=== PATIENT | male | born 1935 | race Caucasian/White ===

== ENCOUNTER 2016-09-11 04:55 | Emergency (ER) | payer MEDICARE, BC ==
[2016-09-11] MEDS ORDERED: Ketorolac 60 MG/2 ML SDV IM ONE (05:10)
[2016-09-11 05:33] VITALS: BP 139/101
--- NOTE | 2016-09-11 06:00 | EDM.PDOC ---
ED HPI GENERAL MEDICAL PROBLEM - General Chief Complaint: General Stated Complaint: RIGHT FLANK PAIN Time Seen by Provider: 09/11/16 05:25 Source of Information: Reports: Patient History Limitations: Reports: No Limitations - History of Present Illness INITIAL COMMENTS - FREE TEXT/NARRATIVE: This is an 81yo M here for abdominal pain that radiates to the flank and then to the front abdomen on the right side. He states it started about 4 weeks ago and the past 3-4 days has gotten severe where the pain is 10/10 and he is unable to get up and move around with ease. He denies any recent injuries. No fever or chills. No dysuria. Does have constipation but it comes and goes after a day. He states he has been taking motrin and tylenol which have been helping. Denies prior issues with this area or pain. He cannot recall his medications but is on a lot. He does not have a list of medications. He lives in [place] and [facility]. He has been discussing his symptoms with his friend Beni who is a practicing [employer]/Front Office Clerk in [place] at 89yrs of age and had him speak to me. 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 Neurological History: Reports: CVA Psychiatric History: Reports: Depression Endocrine/Metabolic History: Reports: Hypoparathyroidism Hematologic History: Reports: Anticoagulation Therapy, Blood Transfusion(s) Oncologic (Cancer) History: Reports: Basal Cell Carcinoma, Prostate Dermatologic History: Reports: Benign Melanoma, Melanoma - Infectious Disease History Infectious Disease History: Reports: Chicken Pox, Measles, Mumps, Shingles - Past Surgical History HEENT Surgical History: Reports: Adenoidectomy, Cataract Surgery, Tonsillectomy Cardiovascular Surgical History: Reports: Coronary Artery Stent GI Surgical History: Reports: Hernia, Abdominal Male Surgical History: Reports: Prostatectomy Musculoskeletal Surgical History: Reports: Hip Replacement, Shoulder Surgery Social & Family History - Family History Family Medical History: Noncontributory - Tobacco Use Smoking Status *Q: Never Smoker Second Hand Smoke Exposure: No - Caffeine Use Caffeine Use: Reports: Coffee - Recreational Drug Use Recreational Drug Use: No ED ROS GENERAL - Review of Systems Review Of Systems: ROS reveals no pertinent complaints other than HPI. GI/Abdominal: Reports: Abdominal Pain : Reports: Incontinence (post prostate surgery) Musculoskeletal: Reports: Back Pain Neurological: Reports: No Symptoms ED EXAM, GENERAL - Physical Exam Exam: See Below Exam Limited By: No Limitations General Appearance: Alert, WD/WN, Moderate Distress Eye Exam: Bilateral Eye: EOMI, PERRL Ears: Normal External Exam Nose: Normal Inspection Throat/Mouth: Normal Inspection Head: Atraumatic, Normocephalic Neck: Normal Inspection Respiratory/Chest: No Respiratory Distress, Lungs Clear, Normal Breath Sounds Cardiovascular: Normal Peripheral Pulses, Regular Rate, Rhythm, Systolic Murmur GI/Abdominal: Normal Bowel Sounds, Soft, Non-Tender, Distended, Other ( difficult to reproduce pain even on deep palpation where patient localizes). No : Guarding, Rigid, Rebound, Tender, Abnormal Bowel Sounds, Mass, Hepatomegaly, Splenomegaly Back Exam: Normal Inspection, Full Range of Motion Extremities: Normal Inspection Neurological: Alert, Oriented, CN II-XII Intact Psychiatric: Normal Affect, Normal Mood Course - Vital Signs Last Recorded V/S: Last Vital Signs Temp 36.6 C 09/11/16 05:34 Pulse 56 L 09/11/16 05:34 Resp 20 09/11/16 05:34 BP 139/101 H 09/11/16 05:34 Pulse Ox 93 L 09/11/16 05:34 - Orders/Labs/Meds Orders: Active Orders 24 hr Category Date Time Status Abdomen Pelvis wo Cont [CT] Stat Exams 09/11/16 05:53 Ordered Labs: Laboratory Tests 09/11/16 09/11/16 09/11/16 Range/Units 06:00 06:00 06:00 WBC 9.5 (4.0-11.0) K/uL RBC 4.94 (4.50-6.50) M/uL Hgb 14.3 (13.0-18.0) g/dL Hct 41.9 (40.0-54.0) % MCV 85 (76-96) fL MCH 28.9 (27.0-32.0) pg MCHC 34.1 (31.0-35.0) g/dL RDW 13.4 (11.0-16.0) % Plt Count 204 (150-400) K/uL MPV 10.8 H (6.0-10.0) fL Neut % (Auto) 53.2 (45.0-70.0) % Lymph % (Auto) 35.5 (20.0-40.0) % Bay % (Auto) 7.8 (3.0-10.0) % Eos % (Auto) 3.2 (1.0-5.0) % Baso % (Auto) 0.3 (0.0-0.5) % Neut # (Auto) 5.06 (2.00-7.50) K/uL Lymph # (Auto) 3.38 (1.50-4.00) K/uL [place] # (Auto) 0.74 (0.20-0.80) K/uL Eos # (Auto) 0.30 (0.04-0.40) K/uL Baso # (Auto) 0.03 (0.02-0.10) K/uL Sodium 139 (136-145) mmol/L Potassium 4.4 (3.5-5.1) mmol/L Chloride 105 (98-107) mmol/L Carbon Dioxide 23.2 (21.0-32.0) mmol/L Anion Gap 15.2 H (5.0-15.0) mmol/L BUN 22 (8-26) mg/dL Creatinine 1.08 (0.70-1.30) mg/dL Est Cr Clr Drug Dosing 49.90 mL/min Estimated GFR (MDRD) > 60 (>60) MLS/MIN BUN/Creatinine Ratio 20.4 (6-25) Glucose 119 H (74-100) mg/dL Lactic Acid 1.13 (0.90-1.70) mmol/L Calcium 8.7 (8.5-10.1) mg/dL Total Bilirubin 0.2 (0.0-1.0) mg/dL AST 14 L (15-37) U/L ALT 18 (12-78) U/L Alkaline Phosphatase 58 (46-116) U/L Total Protein 7.0 (6.4-8.2) g/dL Albumin 3.6 (3.4-5.0) g/dL Globulin 3.4 (2.2-4.2) g/dL Albumin/Globulin Ratio 1.1 (0.8-2.0) Urine Color Urine Appearance (CLEAR) Urine pH (5.0-8.0) Ur Specific [place] (1.003-1.030) Urine Protein (NEGATIVE) mg/dL Urine Glucose (UA) (NEGATIVE) mg/dL Urine Ketones (NEGATIVE) mg/dL Urine Occult Blood (NEGATIVE) Urine Nitrite (NEGATIVE) Urine Bilirubin (NEGATIVE) Urine Urobilinogen (0.2-1.0) E.U./dL Ur Leukocyte Esterase (NEGATIVE) 09/11/16 Range/Units 06:28 WBC (4.0-11.0) K/uL RBC (4.50-6.50) M/uL Hgb (13.0-18.0) g/dL Hct (40.0-54.0) % MCV (76-96) fL MCH (27.0-32.0) pg MCHC (31.0-35.0) g/dL RDW (11.0-16.0) % Plt Count (150-400) K/uL MPV (6.0-10.0) fL Neut % (Auto) (45.0-70.0) % Lymph % (Auto) (20.0-40.0) % [place] % (Auto) (3.0-10.0) % Eos % (Auto) (1.0-5.0) % Baso % (Auto) (0.0-0.5) % Neut # (Auto) (2.00-7.50) K/uL Lymph # (Auto) (1.50-4.00) K/uL [place] # (Auto) (0.20-0.80) K/uL Eos # (Auto) (0.04-0.40) K/uL Baso # (Auto) (0.02-0.10) K/uL Sodium (136-145) mmol/L Potassium (3.5-5.1) mmol/L Chloride (98-107) mmol/L Carbon Dioxide (21.0-32.0) mmol/L Anion Gap (5.0-15.0) mmol/L BUN (8-26) mg/dL Creatinine (0.70-1.30) mg/dL Est Cr Clr Drug Dosing mL/min Estimated GFR (MDRD) (>60) MLS/MIN BUN/Creatinine Ratio (6-25) Glucose (74-100) mg/dL Lactic Acid (0.90-1.70) mmol/L Calcium (8.5-10.1) mg/dL Total Bilirubin (0.0-1.0) mg/dL AST (15-37) U/L ALT (12-78) U/L Alkaline Phosphatase (46-116) U/L Total Protein (6.4-8.2) g/dL Albumin (3.4-5.0) g/dL Globulin (2.2-4.2) g/dL Albumin/Globulin Ratio (0.8-2.0) Urine Color Yellow Urine Appearance Clear (CLEAR) Urine pH 5.5 (5.0-8.0) Ur Specific [place] 1.025 (1.003-1.030) Urine Protein Negative (NEGATIVE) mg/dL Urine Glucose (UA) Negative (NEGATIVE) mg/dL Urine Ketones Negative (NEGATIVE) mg/dL Urine Occult Blood Negative (NEGATIVE) Urine Nitrite Negative (NEGATIVE) Urine Bilirubin Negative (NEGATIVE) Urine Urobilinogen 0.2 (0.2-1.0) E.U./dL Ur Leukocyte Esterase Trace H (NEGATIVE) Meds: Medications Discontinued Medications Generic Name Dose Route Start Last Admin Trade Name Freq PRN Reason Stop Dose Admin Ketorolac Tromethamine 60 mg 09/11/16 05:10 09/11/16 05:13 Toradol IM 09/11/16 05:11 60 mg ONETIME ONE Administration Departure - Departure Time of Disposition: 07:04 Disposition: Home, Self-Care 01 Condition: Good Clinical Impression: Abdominal muscle pain - Discharge Information Forms: ED Department Discharge Additional Instructions: Take all previously prescribed medications as previously directed. Drink plenty of fluids and get plenty of rest. Activity as tolerated. Take Miralax daily for constipation. Follow up with regular provider as needed. Call with any questions. - Problem List Review Problem List Initiated/Reviewed/Updated: Yes - My Orders Last 24 Hours: My Active Orders 09/11/16 05:53 Abdomen Pelvis wo Cont [CT] Stat - Assessment/Plan Last 24 Hours: My Active Orders 09/11/16 05:53 Abdomen Pelvis wo Cont [CT] Stat Plan: Counseled on close monitoring and rest for likely pulled muscle. Discussed f/u as needed if symptoms return for recheck and exam.
--- NOTE | 2016-09-11 09:30 | CT ---
DATE OF SERVICE: 09/11/2016 CLINICAL DATA: Flank/back pain rad to abd. UNENHANCED ABDOMEN AND PELVIC CT Multislice acquisition through the abdomen and pelvis without IV or oral contrast was performed. No priors. Breathing motion artifact does degrade image quality. The heart size is within normal limits. There are coronary artery calcifications. There is a densely calcified nodule within the left lung base consistent with prior granulomatous disease. There is calcified pleural plaque in the left hemithorax posteriorly. The possibility of prior asbestos exposure should be considered. There are atelectatic changes in the right lower lobe, small area of consolidation. Pneumonia should be considered. The liver is normal size. There are innumerable small calcifications scattered throughout the liver consistent with prior granulomatous disease. No other focal hepatic lesions. The gallbladder appears normal. There are innumerable small calcifications scattered throughout the spleen consistent with prior granulomatous disease. The spleen otherwise appears normal. The pancreas appears normal. The right and left adrenals appear normal. There is a 3.8 cm sharply transcribed rounded fluid density lesion in the left renal cortex consistent in appearance with a benign renal cyst. The kidneys otherwise appear normal. No nephrocalcinosis or nephrolithiasis. No hydronephrosis or hydroureter. The patient is status post right total hip arthroplasty. This does produce significant beam hardening and streak artifact obscuring adjacent structures. The bladder is partially fluid filled and appears grossly normal. The appendix is not dilated. No evidence of appendicitis. There is diverticulosis of the descending and sigmoid colon. No evidence of diverticulitis. The patient is status post prostatectomy. No free air. No free fluid. No dilated loops of bowel. No adenopathy. No aortic aneurysm. IMPRESSION: No acute abnormalities. Other findings as discussed above. [id number] [facility]
== END 2016-09-11 07:01 | disposition home or self-care (01) ==
LOC: LB.ED 04:55
DX: M79.1 Myalgia (principal); H54.7 Unspecified visual loss; I25.10 Atherosclerotic heart disease of native coronary artery without angina pectoris; I25.2 Old myocardial infarction; E78.00 Pure hypercholesterolemia, unspecified; F32.9 Major depressive disorder, single episode, unspecified; E21.3 Hyperparathyroidism, unspecified; Z86.73 Personal history of transient ischemic attack (TIA), and cerebral infarction without residual deficits; Z98.890 Other specified postprocedural states
CPT/HCPCS: 36415; 74176; 80053; 81003; 83605; 85025; 96372; 99283; 99284; J1885

== ENCOUNTER 2016-12-30 16:10 | Emergency (ER) | payer MEDICARE, BC ==
--- NOTE | 2016-12-30 16:17 | EDM.PDOC ---
ED HPI GENERAL MEDICAL PROBLEM - General Chief Complaint: Syncope Stated Complaint: DIZZY - FELL @ [facility] Time Seen by Provider: 12/30/16 16:14 Source of Information: Reports: Patient, RN History Limitations: Reports: No Limitations - History of Present Illness INITIAL COMMENTS - FREE TEXT/NARRATIVE: 81 yr male presents with dizzy spell at home, hit head and was briefly unconscious. Friends took him inside to sit down. Pt is alert and talkative and Hard of hearing. 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 States no pain today. Thinks he may have doubled up his medication today. - Related Data Allergies Allergy/AdvReac Type Severity Reaction Status Date / Time No Known Allergies Allergy Verified 09/11/16 04:57 Home Meds: Home Meds Clopidogrel Bisulfate [Clopidogrel] 75 mg PO DAILY 12/30/16 [History] Docusate Sodium/Sennosides [Senna Plus] 1 tab PO DAILY PRN 12/30/16 [History] Escitalopram Oxalate [Escitalopram Oxalate] 20 mg PO DAILY 12/30/16 [History] Fish Oil/Borage/Flax/Om3,6,9#1 [[place] 3-6-9 1,200 mg Softgel] 2,000 mg PO BID [History] Levothyroxine Sodium [Synthroid] 100 mcg PO DAILY 12/30/16 [History] Promethazine/Phenyleph/Codeine [Promethazine VC-Codeine Syrup] 5 ml PO Q4H PRN 12/30/16 [History] RX: Gabapentin [Neurontin] 400 mg PO ASDIRECTED 12/30/16 [History] RX: Ibuprofen 200 mg PO Q4HR PRN 12/30/16 [History] RX: Metoprolol Tartrate 12.5 mg PO BID 12/30/16 [History] RX: Tolterodine Tartrate 1 mg PO BID 12/30/16 [History] RX: Valsartan 80 mg PO DAILY 12/30/16 [History] RX: amLODIPine [Norvasc] 5 mg PO DAILY 12/30/16 [History] Past Medical History HEENT History: Reports: Cataract, Hard of Hearing, Impaired Vision Cardiovascular History: Reports: CAD, High Cholesterol, Hypertension, [place], Prior Cardiac Arrest, Stents Genitourinary History: Reports: Other (See Below) Other Genitourinary History: 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 Neurological History: Reports: CVA Psychiatric History: Reports: Depression Endocrine/Metabolic History: Reports: Hypoparathyroidism Hematologic History: Reports: Anticoagulation Therapy, Blood Transfusion(s) Oncologic (Cancer) History: Reports: Basal Cell Carcinoma, Prostate Dermatologic History: Reports: Benign Melanoma, Melanoma - Infectious Disease History Infectious Disease History: Reports: Chicken Pox, Measles, Mumps, Shingles - Past Surgical History HEENT Surgical History: Reports: Adenoidectomy, Cataract Surgery, Tonsillectomy Cardiovascular Surgical History: Reports: Coronary Artery Stent GI Surgical History: Reports: Hernia, Abdominal Male Surgical History: Reports: Prostatectomy Musculoskeletal Surgical History: Reports: Hip Replacement, Shoulder Surgery Social & Family History - Family History Family Medical History: Noncontributory - Tobacco Use Smoking Status *Q: Never Smoker Second Hand Smoke Exposure: No - Caffeine Use Caffeine Use: Reports: Coffee - Recreational Drug Use Recreational Drug Use: No ED ROS GENERAL - Review of Systems Review Of Systems: See Below Constitutional: Reports: No Symptoms HEENT: Reports: Glasses Respiratory: Reports: No Symptoms Cardiovascular: Reports: No Symptoms GI/Abdominal: Reports: No Symptoms : Reports: Incontinence Musculoskeletal: Reports: No Symptoms Skin: Reports: No Symptoms Neurological: Reports: Dizziness ED EXAM, GENERAL - Physical Exam Exam: See Below Exam Limited By: No Limitations General Appearance: Alert, No Apparent Distress Ears: Normal External Exam Nose: Normal Inspection Throat/Mouth: Normal Inspection Neck: Normal Inspection, Supple, Non-Tender Respiratory/Chest: Lungs Clear, Normal Breath Sounds Cardiovascular: Regular Rate, Rhythm, No Edema GI/Abdominal: Normal Bowel Sounds, Soft Back Exam: Normal Inspection, Other (bandaide to back. states biopsy done about 1 week ago.) Extremities: Normal Inspection, Normal Capillary Refill Neurological: Alert, Oriented, No Motor/Sensory Deficits Psychiatric: Normal Affect, Normal Mood Skin Exam: Warm, Dry, Normal Color, Other (uses walking stick) Lymphatic: No Adenopathy EKG INTERPRETATION EKG Date: 12/30/16 Rhythm: NSR QRS: RBBB KS/PQ Interval: 222 ms EKG Interpretation Comments: Sinus rhythm w 1st degree AV block and rt bundle branch block. Possible inferior infarct, age undetermined. Course - Vital Signs Last Recorded V/S: Last Vital Signs Temp 97 F 12/30/16 16:10 Pulse 70 12/30/16 16:10 Resp 16 12/30/16 16:10 BP 160/76 H 12/30/16 16:10 Pulse Ox 96 12/30/16 16:10 - Orders/Labs/Meds Labs: Laboratory Tests 12/30/16 12/30/16 12/30/16 Range/Units 16:14 16:15 16:15 WBC 10.4 (4.0-11.0) K/uL RBC 4.66 (4.50-6.50) M/uL Hgb 13.5 (13.0-18.0) g/dL Hct 39.6 L (40.0-54.0) % MCV 85 (76-96) fL MCH 29.0 (27.0-32.0) pg MCHC 34.1 (31.0-35.0) g/dL RDW 13.2 (11.0-16.0) % Plt Count 239 (150-400) K/uL MPV 9.9 (6.0-10.0) fL Neut % (Auto) 52.0 (45.0-70.0) % Lymph % (Auto) 37.2 (20.0-40.0) % [place] % (Auto) 8.2 (3.0-10.0) % Eos % (Auto) 2.1 (1.0-5.0) % Baso % (Auto) 0.5 (0.0-0.5) % Neut # (Auto) 5.39 (2.00-7.50) K/uL Lymph # (Auto) 3.85 (1.50-4.00) K/uL [place] # (Auto) 0.85 H (0.20-0.80) K/uL Eos # (Auto) 0.22 (0.04-0.40) K/uL Baso # (Auto) 0.05 (0.02-0.10) K/uL PT 9.9 (9.0-11.5) sec INR 1.0 (1.0-3.5) Sodium 139 (136-145) mmol/L Potassium 4.5 (3.5-5.1) mmol/L Chloride 103 (98-107) mmol/L Carbon Dioxide 26.9 (21.0-32.0) mmol/L Anion Gap 13.6 (5.0-15.0) mmol/L BUN 21 (8-26) mg/dL Creatinine 1.04 (0.70-1.30) mg/dL Est Cr Clr Drug Dosing TNP Estimated GFR (MDRD) > 60 (>60) MLS/MIN BUN/Creatinine Ratio 20.2 (6-25) Glucose 98 (74-100) mg/dL Lactic Acid (0.90-1.70) mmol/L Calcium 8.9 (8.5-10.1) mg/dL Total Bilirubin 0.4 D (0.0-1.0) mg/dL AST 18 (15-37) U/L ALT 25 (12-78) U/L Alkaline Phosphatase 62 (46-116) U/L Troponin I < 0.017 (0.000-0.060) ng/mL Total Protein 6.8 (6.4-8.2) g/dL Albumin 3.8 (3.4-5.0) g/dL Globulin 3.0 (2.2-4.2) g/dL Albumin/Globulin Ratio 1.3 (0.8-2.0) TSH, Ultra Sensitive (0.358-3.740) uIU/mL Urine Color Urine Appearance (CLEAR) Urine pH (5.0-8.0) Ur Specific [place] (1.003-1.030) Urine Protein (NEGATIVE) mg/dL Urine Glucose (UA) (NEGATIVE) mg/dL Urine Ketones (NEGATIVE) mg/dL Urine Occult Blood (NEGATIVE) Urine Nitrite (NEGATIVE) Urine Bilirubin (NEGATIVE) Urine Urobilinogen (0.2-1.0) E.U./dL Ur Leukocyte Esterase (NEGATIVE) Urine RBC /HPF Urine WBC /HPF Ur Squamous Epith Cells /HPF 12/30/16 12/30/16 12/30/16 Range/Units 16:15 16:15 17:08 WBC (4.0-11.0) K/uL RBC (4.50-6.50) M/uL Hgb (13.0-18.0) g/dL Hct (40.0-54.0) % MCV (76-96) fL MCH (27.0-32.0) pg MCHC (31.0-35.0) g/dL RDW (11.0-16.0) % Plt Count (150-400) K/uL MPV (6.0-10.0) fL Neut % (Auto) (45.0-70.0) % Lymph % (Auto) (20.0-40.0) % [place] % (Auto) (3.0-10.0) % Eos % (Auto) (1.0-5.0) % Baso % (Auto) (0.0-0.5) % Neut # (Auto) (2.00-7.50) K/uL Lymph # (Auto) (1.50-4.00) K/uL [place] # (Auto) (0.20-0.80) K/uL Eos # (Auto) (0.04-0.40) K/uL Baso # (Auto) (0.02-0.10) K/uL PT (9.0-11.5) sec INR (1.0-3.5) Sodium (136-145) mmol/L Potassium (3.5-5.1) mmol/L Chloride (98-107) mmol/L Carbon Dioxide (21.0-32.0) mmol/L Anion Gap (5.0-15.0) mmol/L BUN (8-26) mg/dL Creatinine (0.70-1.30) mg/dL Est Cr Clr Drug Dosing Estimated GFR (MDRD) (>60) MLS/MIN BUN/Creatinine Ratio (6-25) Glucose (74-100) mg/dL Lactic Acid 0.70 L (0.90-1.70) mmol/L Calcium (8.5-10.1) mg/dL Total Bilirubin (0.0-1.0) mg/dL AST (15-37) U/L ALT (12-78) U/L Alkaline Phosphatase (46-116) U/L Troponin I (0.000-0.060) ng/mL Total Protein (6.4-8.2) g/dL Albumin (3.4-5.0) g/dL Globulin (2.2-4.2) g/dL Albumin/Globulin Ratio (0.8-2.0) TSH, Ultra Sensitive 1.936 (0.358-3.740) uIU/mL Urine Color Yellow Urine Appearance Clear (CLEAR) Urine pH 5.5 (5.0-8.0) Ur Specific [place] 1.015 (1.003-1.030) Urine Protein Negative (NEGATIVE) mg/dL Urine Glucose (UA) Negative (NEGATIVE) mg/dL Urine Ketones Negative (NEGATIVE) mg/dL Urine Occult Blood Negative (NEGATIVE) Urine Nitrite Negative (NEGATIVE) Urine Bilirubin Negative (NEGATIVE) Urine Urobilinogen 0.2 (0.2-1.0) E.U./dL Ur Leukocyte Esterase Negative (NEGATIVE) Urine RBC Not seen /HPF Urine WBC Not seen /HPF Ur Squamous Epith Cells Few /HPF - Re-Assessments/Exams Free Text/Narrative Re-Assessment/Exam: 12/30/16 17:36 Lab results reviewed, CMP, troponins, CBC and TSH are normal, as well as U/A. EKG shows NSR with 1st degree AV block and BBB. States KS May 2016, Inferior infarct noted, age undetermined. Reviewed results with pt. BP check done with lying, sitting and standing. No return of dizziness, vision normal and no weakness noted. Friend is here and pt will be discharged to self care. Recommend F/U with PCP tomorrow for assessment. Pt states heading back [facility] tomorrow. Home is in [place]. Recommend use of medication reminders and continue to use walking stick for ambulation, change position slowly. 12/30/16 17:41 Departure - Departure Time of Disposition: 17:52 Disposition: Home, Self-Care 01 Condition: Good Clinical Impression: Syncope Instructions: Orthostatic Hypotension, Syncope, [id number] Referrals: PCP,None [Primary Care Provider] - Forms: ED Department Discharge Care Plan Goals: Use your walking stick at all times. Any recurrence and return to ER. Call primary care provider in am. Use pill reminders
[2016-12-30 17:56] VITALS: BP 123/85
== END 2016-12-30 17:50 | disposition home or self-care (01) ==
LOC: LB.ED 16:10
DX: R55 Syncope and collapse (principal); I10 Essential (primary) hypertension; I25.10 Atherosclerotic heart disease of native coronary artery without angina pectoris; E78.00 Pure hypercholesterolemia, unspecified; F32.9 Major depressive disorder, single episode, unspecified; Z79.01 Long term (current) use of anticoagulants; Z86.73 Personal history of transient ischemic attack (TIA), and cerebral infarction without residual deficits; Z95.5 Presence of coronary angioplasty implant and graft; Z79.02 Long term (current) use of antithrombotics/antiplatelets; Z79.899 Other long term (current) drug therapy
CPT/HCPCS: 36415; 80053; 81001; 83605; 84443; 84484; 85025; 85610; 93005; 99284; 99284-25

== ENCOUNTER 2021-12-17 11:07 | Emergency (ER) | payer MEDICARE, BC ==
[2021-12-17 11:44] VITALS: BP 137/69; PULSE 76
== END 2021-12-17 12:04 | disposition home or self-care (01) ==
LOC: LB.ED 11:07
DX: K13.1 Cheek and lip biting (principal); I25.10 Atherosclerotic heart disease of native coronary artery without angina pectoris; I10 Essential (primary) hypertension; Z79.899 Other long term (current) drug therapy
CPT/HCPCS: 71045; 99282; 99283

== ENCOUNTER 2022-01-08 09:55 | Emergency (ER) | payer MEDICARE, BC ==
[2022-01-08] MEDS ORDERED: Acetaminophen/HYDROcodone 325-5 MG Tab ONE (11:30)
[2022-01-08 14:46] VITALS: BP 110/82; PULSE 71
== END 2022-01-08 11:08 | disposition home or self-care (01) ==
LOC: LB.ED 09:55
DX: S70.02XA Contusion of left hip, initial encounter (principal); I25.10 Atherosclerotic heart disease of native coronary artery without angina pectoris; I10 Essential (primary) hypertension; I25.2 Old myocardial infarction; E20.9 Hypoparathyroidism, unspecified; Z79.01 Long term (current) use of anticoagulants; Z79.02 Long term (current) use of antithrombotics/antiplatelets; Z79.899 Other long term (current) drug therapy; W18.30XA Fall on same level, unspecified, initial encounter; Y92.002 Bathroom of unspecified non-institutional (private) residence as the place of occurrence of the external cause
CPT/HCPCS: 73502; 99283; A9270

== ENCOUNTER 2023-07-05 12:01 | Emergency (ER) | payer MEDICARE, BC ==
[2023-07-05 12:19] VITALS: BP 154/94; PULSE 88
[2023-07-05] MEDS ORDERED: Acetaminophen/HYDROcodone 325-5 MG Tab ONE (13:08)
== END 2023-07-05 12:43 | disposition home or self-care (01) ==
LOC: LB.ED 12:01
DX: S20.212A Contusion of left front wall of thorax, initial encounter (principal); I25.10 Atherosclerotic heart disease of native coronary artery without angina pectoris; E78.00 Pure hypercholesterolemia, unspecified; I10 Essential (primary) hypertension; W19.XXXA Unspecified fall, initial encounter
CPT/HCPCS: 71045; 99283; A9270

== ENCOUNTER 2023-10-13 13:48 | Emergency (ER) | payer MEDICARE, BC ==
[2023-10-13 15:14] LABS: HEMATOCRIT 39.6 % (40.0-54.0); HEMOGLOBIN 13.1 g/dL (13.0-18.0); MEAN CORPUSCULAR HEMOGLOBIN 30.5 pg (27.0-32.0); MEAN CORPUSCULAR HGB CONC 33.1 g/dL (31.0-35.0); MEAN PLATELET VOLUME 10.2 fL (6.0-10.0); RED BLOOD CELL COUNT 4.29 M/uL (4.50-6.50); RED CELL DISTRIBUTION WIDTH 14.1 % (11.0-16.0); WHITE BLOOD CELL COUNT,WBC 9.3 K/uL (4.0-11.0)
[2023-10-13 15:41] LABS: A/G RATIO 1.1 (0.8-2.0); ALBUMIN 3.5 g/dL (3.4-5.0); ANION GAP 13.9 mmol/L (5.0-15.0); BILIRUBIN TOTAL 0.4 mg/dL (0.0-1.0); BUN/CREATININE RATIO 26.3 (6-25); CALCIUM 9.1 mg/dL (8.5-10.1); CARBON DIOXIDE,CO2 24.6 mmol/L (21.0-32.0); CREATININE 0.99 mg/dL (0.70-1.30); EST CRCL DRUG DOSING (CG) 52.42 mL/min; MAGNESIUM 1.9 mg/dL (1.8-2.4); POTASSIUM,K 4.5 mmol/L (3.5-5.1); PROTEIN TOTAL,TP 6.7 g/dL (6.4-8.2)
[2023-10-13 15:45] LABS: TROPONIN I HIGH SENSITIVITY 75.5 pg/ml (<=60.4)
[2023-10-13] MEDS: Furosemide 20 MG Tab PO ONE (17:11)
[2023-10-13] MEDS: Furosemide 40 MG/4 ML VIAL IVPUSH ONE (17:12)
[2023-10-13 21:14] VITALS: BP 142/93; PULSE 93
== END 2023-10-13 18:15 | disposition home or self-care (01) ==
LOC: LB.ED 13:48
DX: E87.70 Fluid overload, unspecified (principal); I10 Essential (primary) hypertension; Z86.73 Personal history of transient ischemic attack (TIA), and cerebral infarction without residual deficits; Z79.899 Other long term (current) drug therapy; Z91.048 Other nonmedicinal substance allergy status
CPT/HCPCS: 36415; 71045; 80053; 83735; 83880; 84484; 85027; 93005; 99285; A9270

== ENCOUNTER 2023-11-13 17:25 | Emergency (ER) | payer MEDICARE, BC ==
[2023-11-13] MEDS: Albuterol/Ipratropium 3.0-0.5 MG/3 ML Neb Soln NEB SCH (17:33)
[2023-11-13 17:44] LABS: HEMATOCRIT 41.9 % (40.0-54.0); HEMOGLOBIN 13.8 g/dL (13.0-18.0); MEAN CORPUSCULAR HEMOGLOBIN 30.5 pg (27.0-32.0); MEAN CORPUSCULAR HGB CONC 32.9 g/dL (31.0-35.0); MEAN PLATELET VOLUME 9.5 fL (6.0-10.0); RED BLOOD CELL COUNT 4.52 M/uL (4.50-6.50); RED CELL DISTRIBUTION WIDTH 13.7 % (11.0-16.0)
[2023-11-13 18:13] LABS: A/G RATIO 0.9 (0.8-2.0); ALBUMIN 3.2 g/dL (3.4-5.0); BILIRUBIN TOTAL 0.3 mg/dL (0.0-1.0); BUN/CREATININE RATIO 25.9 (6-25); CALCIUM 8.8 mg/dL (8.5-10.1); CARBON DIOXIDE,CO2 26.6 mmol/L (21.0-32.0); CREATININE 1.35 mg/dL (0.70-1.30); EST CRCL DRUG DOSING (CG) 39.05 mL/min; POTASSIUM,K 4.6 mmol/L (3.5-5.1); PROTEIN TOTAL,TP 6.7 g/dL (6.4-8.2)
[2023-11-13 18:14] LABS: TROPONIN I HIGH SENSITIVITY 86.1 pg/ml (<=60.4)
[2023-11-13] MEDS ORDERED: Iopamidol 612 MG/ML 100 ML Bottle IV PRN (18:45)
[2023-11-13] MEDS: Iodixanol 652 MG/ML 100 ML Bottle IV PRN (19:04)
[2023-11-13] MEDS: Sodium Chloride 0.9% 50 ML SDV FLUSH SCH (19:04)
[2023-11-13] MEDS: Furosemide 20 MG Tab PO ONE (20:34)
[2023-11-13] MEDS: Furosemide 20 MG Tab ONE (20:39)
[2023-11-14 02:05] VITALS: BP 136/92; PULSE 98
== END 2023-11-13 21:11 | disposition home or self-care (01) ==
LOC: LB.ED 17:25
DX: E87.70 Fluid overload, unspecified (principal); I10 Essential (primary) hypertension; E03.9 Hypothyroidism, unspecified; Z79.899 Other long term (current) drug therapy; Z79.890 Hormone replacement therapy
CPT/HCPCS: 36415; 71045; 71275; 80053; 83880; 84484; 85027; 85379; 93005; 94640; 99285; A9270-GY; J3490; J7620

== ENCOUNTER 2023-11-17 15:16 | Emergency (ER) | payer MEDICARE, BC ==
[2023-11-17] MEDS ORDERED: Sodium Chloride 0.9% 10 ML Syringe FLUSH PRN (15:42)
[2023-11-17 15:54] LABS: HEMATOCRIT 39.6 % (40.0-54.0); HEMOGLOBIN 13.4 g/dL (13.0-18.0); MEAN CORPUSCULAR HEMOGLOBIN 30.8 pg (27.0-32.0); MEAN CORPUSCULAR HGB CONC 33.8 g/dL (31.0-35.0); MEAN PLATELET VOLUME 9.6 fL (6.0-10.0); RED BLOOD CELL COUNT 4.35 M/uL (4.50-6.50); RED CELL DISTRIBUTION WIDTH 13.7 % (11.0-16.0); WHITE BLOOD CELL COUNT,WBC 14.1 K/uL (4.0-11.0)
[2023-11-17 16:20] LABS: A/G RATIO 0.9 (0.8-2.0); ALANINE AMINOTRANSFERASE,ALT 25 U/L (12-78); ALBUMIN 2.9 g/dL (3.4-5.0); ALKALINE PHOSPHATASE 76 U/L (46-116); ANION GAP 10.5 mmol/L (5.0-15.0); ASPARTATE AMNIOTRANSFERASE,AST 17 U/L (15-37); BILIRUBIN TOTAL 0.6 mg/dL (0.0-1.0); BLOOD UREA NITROGEN,BUN 22 mg/dL (8-26); CALCIUM 8.7 mg/dL (8.5-10.1); CARBON DIOXIDE,CO2 25.5 mmol/L (21.0-32.0); CHLORIDE,CL 98 mmol/L (98-107); ESTIMATED GFR 72 mL/min (>60); GLUCOSE RANDOM 120 mg/dL (74-100); PROTEIN TOTAL,TP 6.3 g/dL (6.4-8.2); SODIUM,NA 130 mmol/L (136-145)
[2023-11-17 16:25] LABS: TROPONIN I HIGH SENSITIVITY 64.7 pg/ml (<=60.4)
[2023-11-17 17:20] VITALS: BP 114/85; PULSE 108
[2023-11-19] MEDS: Furosemide 20 MG/2 ML VIAL IVPUSH ONE (14:16)
== END 2023-11-17 17:27 | disposition home or self-care (01) ==
LOC: LB.ED 15:16
DX: I11.0 Hypertensive heart disease with heart failure (principal); I50.42 Chronic combined systolic (congestive) and diastolic (congestive) heart failure; E87.70 Fluid overload, unspecified; E03.9 Hypothyroidism, unspecified; Z86.73 Personal history of transient ischemic attack (TIA), and cerebral infarction without residual deficits; Z79.899 Other long term (current) drug therapy
CPT/HCPCS: 36415; 71045; 80053; 83880; 84484; 85027; 93005; 99285

== ENCOUNTER 2023-11-24 19:29 | Inpatient (IN) | payer MEDICARE, BC ==
[2023-11-24] MEDS ORDERED: Sodium Chloride 0.9% 10 ML Syringe FLUSH PRN (19:50)
[2023-11-24 20:12] LABS: HEMATOCRIT 42.4 % (40.0-54.0); MEAN CORPUSCULAR HEMOGLOBIN 29.8 pg (27.0-32.0); MEAN PLATELET VOLUME 9.5 fL (6.0-10.0); RED BLOOD CELL COUNT 4.7 M/uL (4.50-6.50); RED CELL DISTRIBUTION WIDTH 13.9 % (11.0-16.0); WHITE BLOOD CELL COUNT,WBC 11.1 K/uL (4.0-11.0)
[2023-11-24 20:29] LABS: BLOOD UREA NITROGEN,BUN 25 mg/dL (8-26); BUN/CREATININE RATIO 20.5 (6-25); CALCIUM 8.5 mg/dL (8.5-10.1); CARBON DIOXIDE,CO2 32.7 mmol/L (21.0-32.0); CHLORIDE,CL 97 mmol/L (98-107); CREATININE 1.22 mg/dL (0.70-1.30); ESTIMATED GFR 57 mL/min (>60); GLUCOSE RANDOM 140 mg/dL (74-100); MAGNESIUM 1.8 mg/dL (1.8-2.4); PRO B-TYPE NATRIUR PEPT,BNPPRO 10173 pg/mL (0-450); SODIUM,NA 139 mmol/L (136-145)
[2023-11-24 20:31] LABS: POTASSIUM,K 2.7 mmol/L (3.5-5.1)
[2023-11-24] MEDS: Furosemide 40 MG/4 ML VIAL IVPUSH SCH (20:55)
[2023-11-24] MEDS: Furosemide 40 MG/4 ML VIAL ONE (21:38)
[2023-11-24] MEDS: Potassium Chloride 20 MEQ Tab.ER PO SCH (22:06)
[2023-11-24] MEDS: Melatonin 3 MG Tab PO SCH (22:06)
[2023-11-24] MEDS: Potassium Chloride Riders 50 ML ONE (22:07)
[2023-11-24] MEDS: Potassium Chloride Riders 10 MEQ in Premix Bag 1 BAG IV SCH (22:07)
[2023-11-25] MEDS: FLAX PO SCH (08:00)
[2023-11-25] MEDS ORDERED: FISH OIL PO SCH (08:00)
[2023-11-25] MEDS: [UNRECOGNIZED DRUG - OTHER] PO SCH (08:00)
[2023-11-25] MEDS: BORAGE PO SCH (08:00)
[2023-11-25] MEDS ORDERED: BORAGE PO SCH (08:00)
[2023-11-25] MEDS ORDERED: FLAX PO SCH (08:00)
[2023-11-25] MEDS ORDERED: [UNRECOGNIZED DRUG - OTHER] PO SCH (08:00)
[2023-11-25] MEDS: FISH OIL PO SCH (08:00)
[2023-11-25] MEDS ORDERED: TOLTERODINE TARTRATE 1 MG PO SCH (08:00)
[2023-11-25] MEDS: TOLTERODINE TARTRATE 1 MG PO SCH (08:00)
[2023-11-25] MEDS: Levothyroxine 100 MCG Tab PO SCH (08:31)
[2023-11-25] MEDS ORDERED: Sodium Chloride 0.9% 250 ML IV SCH (08:45)
[2023-11-25 09:22] LABS: BUN/CREATININE RATIO 17.9 (6-25); CALCIUM 8.4 mg/dL (8.5-10.1); CARBON DIOXIDE,CO2 31.4 mmol/L (21.0-32.0); CREATININE 1.12 mg/dL (0.70-1.30); EST CRCL DRUG DOSING (CG) 45.59 mL/min
[2023-11-25 09:23] LABS: ANION GAP 12.6 mmol/L (5.0-15.0)
[2023-11-25] MEDS: Tolterodine 4 MG Cap.ER PO SCH (13:38)
[2023-11-25] MEDS: Albuterol/Ipratropium 3.0-0.5 MG/3 ML Neb Soln NEB PRN (13:42)
[2023-11-25] MEDS: Potassium Chloride Riders 50 ML ONE (20:20)
[2023-11-26] MEDS: Fish Oil/Omega-3 Fatty Acids 1 Gm Cap PO SCH (07:42)
[2023-11-26 09:34] LABS: HEMATOCRIT 40.3 % (40.0-54.0); HEMOGLOBIN 13.2 g/dL (13.0-18.0); MEAN CORPUSCULAR HGB CONC 32.8 g/dL (31.0-35.0); MEAN PLATELET VOLUME 9.4 fL (6.0-10.0); RED BLOOD CELL COUNT 4.4 M/uL (4.50-6.50); RED CELL DISTRIBUTION WIDTH 14.1 % (11.0-16.0); WHITE BLOOD CELL COUNT,WBC 9.9 K/uL (4.0-11.0)
[2023-11-26 09:44] LABS: ANION GAP 12.9 mmol/L (5.0-15.0); BUN/CREATININE RATIO 19.2 (6-25); CALCIUM 8.6 mg/dL (8.5-10.1); CARBON DIOXIDE,CO2 30.5 mmol/L (21.0-32.0); CREATININE 1.2 mg/dL (0.70-1.30); EST CRCL DRUG DOSING (CG) 42.55 mL/min; POTASSIUM,K 3.4 mmol/L (3.5-5.1)
[2023-11-26] MEDS: Potassium Chloride 20 MEQ Tab.ER PO SCH (10:46)
[2023-11-26] MEDS: Azithromycin 500 MG Tab PO ONE (10:46)
[2023-11-26] MEDS: cefTRIAXone 2 GM in Sodium Chloride 0.9% 100 ML IV SCH (10:46)
[2023-11-26] MEDS: Albuterol/Ipratropium 3.0-0.5 MG/3 ML Neb Soln NEB SCH (13:33)
[2023-11-26] MEDS: Acetaminophen/HYDROcodone 325-5 MG Tab PO PRN (16:03)
[2023-11-27 08:50] LABS: ANION GAP 10.3 mmol/L (5.0-15.0); BUN/CREATININE RATIO 22.9 (6-25); CARBON DIOXIDE,CO2 32.6 mmol/L (21.0-32.0); CREATININE 1.05 mg/dL (0.70-1.30); EST CRCL DRUG DOSING (CG) 48.63 mL/min; POTASSIUM,K 3.9 mmol/L (3.5-5.1)
[2023-11-27] MEDS: Azithromycin 250 MG Tab PO SCH (10:02)
[2023-11-27] MEDS: Budesonide 0.5 MG/2 ML Neb Susp NEB SCH (15:34)
[2023-11-28] MEDS: Albuterol/Ipratropium 3.0-0.5 MG/3 ML Neb Soln NEB SCH (04:05)
[2023-11-28] MEDS: Acetaminophen 325 MG Tab PO PRN (04:20)
[2023-11-28] MEDS: LORazepam 0.5 MG Tab PO PRN (11:57)
[2023-11-29 09:43] LABS: BASOPHILS ABSOLUTE AUTO 0.04 K/uL (0.02-0.10); BASOPHILS PERCENT AUTO 0.3 % (0.0-0.5); EOSINOPHILS ABSOLUTE AUTO 0.11 K/uL (0.04-0.40); EOSINOPHILS PERCENT AUTO 0.9 % (1.0-5.0); HEMATOCRIT 39.4 % (40.0-54.0); HEMOGLOBIN 13.1 g/dL (13.0-18.0); LYMPHOCYTES ABSOLUTE AUTO 1.94 K/uL (1.50-4.00); LYMPHOCYTES PERCENT AUTO 15.8 % (20.0-40.0); MEAN CORPUSCULAR HEMOGLOBIN 30.2 pg (27.0-32.0); MEAN CORPUSCULAR HGB CONC 33.2 g/dL (31.0-35.0); MEAN CORPUSCULAR VOLUME 91 fL (76-96); MEAN PLATELET VOLUME 9.5 fL (6.0-10.0); MONOCYTES ABSOLUTE AUTO 0.89 K/uL (0.20-0.80); MONOCYTES PERCENT AUTO 7.3 % (3.0-10.0); NEUTROPHILS ABSOLUTE AUTO 9.29 K/uL (2.00-7.50); NEUTROPHILS PERCENT AUTO 75.7 % (45.0-70.0); PLATELET COUNT,PLT 293 K/uL (150-400); RED BLOOD CELL COUNT 4.34 M/uL (4.50-6.50); WHITE BLOOD CELL COUNT,WBC 12.3 K/uL (4.0-11.0)
[2023-11-29 10:01] LABS: A/G RATIO 0.8 (0.8-2.0); ALBUMIN 2.7 g/dL (3.4-5.0); ANION GAP 15.7 mmol/L (5.0-15.0); BILIRUBIN TOTAL 0.6 mg/dL (0.0-1.0); BUN/CREATININE RATIO 21.4 (6-25); CARBON DIOXIDE,CO2 26.9 mmol/L (21.0-32.0); CREATININE 1.26 mg/dL (0.70-1.30); EST CRCL DRUG DOSING (CG) 40.52 mL/min; POTASSIUM,K 4.6 mmol/L (3.5-5.1); PROTEIN TOTAL,TP 6.2 g/dL (6.4-8.2)
[2023-11-29] MEDS: Furosemide 40 MG/4 ML VIAL IVPUSH SCH (13:17)
[2023-11-29] MEDS: Azithromycin 250 MG Tab PO SCH (13:17)
[2023-11-29] MEDS: Enoxaparin 40 MG/0.4 ML Syringe SUBCUT SCH (13:17)
[2023-11-29] MEDS: Iodixanol 652 MG/ML 100 ML Bottle IV PRN (13:50)
[2023-11-29] MEDS: Sodium Chloride 0.9% 50 ML SDV FLUSH SCH (13:50)
[2023-11-29 14:12] LABS: INFLUENZA A NAA NEGATIVE (NEGATIVE); INFLUENZA B NAA NEGATIVE (NEGATIVE); RESPIRATORY SYNCYTIAL VIR NAA NEGATIVE (NEGATIVE)
[2023-11-29 14:13] LABS: CORONAVIRUS COVID-19 NAA NEGATIVE (NEGATIVE)
[2023-11-29] MEDS: Sennosides 8.6 MG Tab PO PRN (16:21)
[2023-11-29] MEDS: guaiFENesin/Dextromethorphan 100-10 MG/5 ML Soln 10 ML Cup PO PRN (16:21)
[2023-11-29] MEDS ORDERED: Naloxone 2 MG/2 ML Syringe IVPUSH PRN (17:10)
[2023-11-29] MEDS: Heparin Sodium 5,000 Units/ML Vial IVPUSH ONE (17:15)
[2023-11-29] MEDS: Morphine 4 MG/ML VIAL ONE ×2 (17:33→18:46)
[2023-11-29] MEDS: Morphine 4 MG/ML VIAL IVPUSH ONE (17:33)
[2023-11-29] MEDS: Morphine 4 MG/ML VIAL IVPUSH PRN (17:51)
[2023-11-29 18:26] LABS: INR 1.5 (1.0-3.5)
[2023-11-29 18:27] LABS: PROTHROMBIN TIME 15.5 sec (9.0-11.5)
[2023-11-29 18:28] LABS: PTT,PARTIAL THROMBOPLSTIN TIME 121.1 SECONDS (24.4-33.2)
[2023-11-29] MEDS ORDERED: Heparin Sodium/D5W 500 ML ONE (19:58)
[2023-11-29] MEDS: Heparin Sodium/D5W 25,000 UNITS/500 ML BAG IV SCH (20:04)
[2023-11-29 21:32] VITALS: BP 102/69; PULSE 94
== END 2023-11-29 20:15 | DRG 291 ==
LOC: LB.ED 19:29 → LB.MS 20:00 → UNDOADMIN 20:00 → LB.MS 21:05 → UNDOADMIN 21:05
PROVIDERS: ADMIT Surgery; ATTEND Physician Assistant
PROC: 0T9B70Z Drainage of Bladder with Drainage Device, Via Natural or Artificial Opening (ICD-10-PCS; principal; 2023-11-24)
DX: I11.0 Hypertensive heart disease with heart failure (principal); I26.99 Other pulmonary embolism without acute cor pulmonale; I50.33 Acute on chronic diastolic (congestive) heart failure; J90 Pleural effusion, not elsewhere classified; E87.70 Fluid overload, unspecified; I25.2 Old myocardial infarction; J18.9 Pneumonia, unspecified organism; J96.01 Acute respiratory failure with hypoxia; H54.7 Unspecified visual loss; M19.90 Unspecified osteoarthritis, unspecified site; F32.A Depression, unspecified; E03.9 Hypothyroidism, unspecified; Z96.649 Presence of unspecified artificial hip joint; E87.6 Hypokalemia; R29.6 Repeated falls; H91.90 Unspecified hearing loss, unspecified ear; G47.33 Obstructive sleep apnea (adult) (pediatric); K59.00 Constipation, unspecified; Z79.899 Other long term (current) drug therapy; Z95.0 Presence of cardiac pacemaker; Z86.73 Personal history of transient ischemic attack (TIA), and cerebral infarction without residual deficits; Z85.46 Personal history of malignant neoplasm of prostate; Z90.89 Acquired absence of other organs; Z98.49 Cataract extraction status, unspecified eye; Z95.5 Presence of coronary angioplasty implant and graft; Z98.890 Other specified postprocedural states; Z97.4 Presence of external hearing-aid
CPT/HCPCS: 0241U; 36415; 51702; 71045; 71250; 71260; 80048; 80053; 83605; 83735; 83880; 84145; 84484; 85025; 85027; 85379; 85610; 85730; 93005; 93010; 94640; 97162-GP; 97165-GO; 97530-GO; 99222; 99232; 99238; 99285; A0425; A0428; A9270-GY; J0696; J1644; J1650; J1940; J2270; J3480; J3490; J7620; U0002